=== PATIENT | female | born 1975 | race Caucasian/White ===

== ENCOUNTER 2017-04-13 22:48 | Inpatient (IN) | payer BC ==
[~2017-04-13 22:48] MED LIST: Midazolam 1 MG/ML 2 ML SDV IV ONE; Propofol 200 MG/20 ML SDV IV ONE; Rocuronium 50 MG/5 ML Vial IV ONE; Succinylcholine/Normal Saline 200 MG/10 ML Syringe IV ONE
[2017-04-13] MEDS ORDERED: Sodium Chloride 0.9% 10 ML Syringe FLUSH PRN (22:59)
[2017-04-13] MEDS ORDERED: Sodium Chloride 0.9% 1,000 ML IV SCH (23:15)
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
[2017-04-13] MEDS ORDERED: Thiamine 100 MG in Sodium Chloride 0.9% 100 ML IV ONE (23:26)
[2017-04-14] MEDS ORDERED: LORazepam 2 MG/ML MDV ONE (01:29)
[2017-04-14] MEDS ORDERED: LORazepam 2 MG/ML MDV IVPUSH ONE (01:30)
[2017-04-14] MEDS ORDERED: Thiamine 200 MG/2 ML MDV IM ONE (01:41)
[2017-04-14] MEDS ORDERED: LORazepam 2 MG/ML MDV IV SCH (01:45)
[2017-04-14] MEDS ORDERED: Dextrose 5%-0.45% NaCl 1,000 ML IV SCH (01:45)
[2017-04-14] MEDS ORDERED: Albuterol/Ipratropium 3.0-0.5 MG/3 ML Neb Soln NEB PRN (03:20)
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
[2017-04-14] MEDS ORDERED: Piperacillin/Tazobactam 3.375 GM in Sodium Chloride 0.9% 50 ML IV SCH (05:00)
[2017-04-14 06:07] VITALS: BP 98/59
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
== END 2017-04-14 05:15 | DRG 815 ==
LOC: FB.ED 22:48 → FB.ICU 23:02
PROVIDERS: ADMIT Family Medicine; ATTEND Family Medicine
DX: T75.1XXA Unspecified effects of drowning and nonfatal submersion, initial encounter (principal); E87.2 Acidosis; W67.XXXA Accidental drowning and submersion while in swimming-pool, initial encounter; Y92.007 Garden or yard of unspecified non-institutional (private) residence as the place of occurrence of the external cause; F10.129 Alcohol abuse with intoxication, unspecified; Y90.1 Blood alcohol level of 20-39 mg/100 ml; R40.2412 Glasgow coma scale score 13-15, at arrival to emergency department
CPT/HCPCS: 36415; 36600; 51702; 70450; 71010; 71250; 80053; 80305; 81001; 82803; 84484; 85025; 93005; 96360; 96361; 99291; 99292; G0480; J2060; J2250; J2543; J2704; J7050; J7620